=== PATIENT | female | born 1985 | race Caucasian/White ===

== ENCOUNTER 2024-03-30 12:25 | Emergency (ER) | payer BC, SELFPAY ==
--- NOTE | ~2024-03-30 | XR_ITS ---
EXAMINATION: XR ANKLE, LEFT CLINICAL INFORMATION: inversion injury COMPARISON: None TECHNIQUE: AP, lateral, and mortise views of the left ankle. FINDINGS: There is mild lateral malleolus soft tissue swelling. No visible acute fracture, dislocation or subluxation seen. Ankle mortise and the subtalar joints are normal. XR/XR ankle LT min 3V IMPRESSION: Mild lateral malleolus soft tissue swelling. No visible acute fracture, dislocation or subluxation seen. Electronically signed by: Golden Alvarez MD 03/30/2024 01:29 PM EST
[2024-03-30 13:01] VITALS: BP 150/96; PULSE 81; RESP 19; TEMP 36.6; O2SAT 100; BMI 31.3
--- NOTE | 2024-03-30 13:01 | ED.LOWEXIN ---
HPI - Extremity Injury (Lower) General Chief Complaint: Extremity Injury, Lower Stated Complaint: ankle inj Time Seen by Provider: 03/30/24 13:33 Source: patient Mode of arrival: ambulatory Limitations: no limitations History of Present Illness ED Provider: EMMA HICKEY Narrative: 38 yo female with PMH of prior L ankle fracture here with trip and fall inverted ankle at home [employer], no other injuries. Hurts to walk, has had multiple issues with same ankle in past. Denies foot or knee pain. Has been limping. complaint: ankle injury Onset (ago): minute(s) ([employer]) Injury: Left: knee Type of Injury: inversion Place: home Severity: mild Relieving factors: immobilization Exacerbating factors: weight bearing, movement and palpation Context: walking Associated symptoms: swelling Other symptoms: none Related Data Allergies Allergy/AdvReac Type Severity Reaction Status Date / Time HEMP SEEDS Allergy Numbness Uncoded 03/30/24 13:03 Review of Systems Review of Systems: Constitutional : No Fever, No Chills Cardiovascular : No Chest Pain, No SOB Respiratory : No Cough, No Dyspnea Gastrointestinal : No Nausea, No Vomiting, No Diarrhea, No abdominal Pain Genitourinary : No Dysuria, No Hematuria Musculoskeletal : positive joint pain, No Myalgias, pos Joint Swelling Skin : No Skin lacerations, No rash Neuro : No Weakness, No Numbness All other systems reviewed and are negative [facility] Past Medical History Attestation statement: The following information was validated with the patient. Medical History (Updated 03/30/24 @ 13:37 by Eduarda Tompkins DO) Ankle fracture Social History Social History (Updated 03/30/24 @ 13:35 by Eduarda Tompkins DO) Patient Tobacco Use Status: Never used Tobacco Advance Directives: No Advance Directives Information Provided: Yes Do you have a plan to hurt others: No Plan Physical Exam Vital Signs: Vital Signs: Last Vital Signs Temp 98 F 03/30/24 13:01 Pulse 81 03/30/24 13:01 Resp 19 03/30/24 13:01 BP 150/96 H 03/30/24 13:01 Pulse Ox 100 03/30/24 13:01 O2 Del Method Room Air 03/30/24 13:01 BMI result Body Mass Index 31.3 Appearance: Alert. Oriented X3. No acute distress. Eyes: Pupils equal, round and reactive to light. ENT: Pharynx normal. Neck: Normal inspection. CVS: Pulses normal. Respiratory: No respiratory distress. Abdomen: atraumatic Skin: Skin warm and dry. Normal skin color. Normal skin turgor. Extremities: No lower extremity edema. L lateral malleolus - mild swelling, no foot ttp no prox fibula ttp distal NV intact Neuro: Oriented X 3. No motor deficit. No sensory deficit. Medical Decision Making Medical Decision Making MDM Narrative: 38 yo female with PMH of prior L ankle fracture here with trip and fall inverted ankle at home [employer], no prior injuries. Hurts to walk, has had multiple issues with same ankle in past. At this time will obtain xray no signs of foot or prox fibula pain. Differential Diagnosis Differential Diagnoses: The differential diagnosis associated with the presentation includes sprain, strain, fracture Independent Interpretation I performed an independent interpretation of an: Plain X-Ray (no fracture) Radiology Impression Discussion of test interpretation with radiology: I have reviewed the radiologist's reading. Prescription Management I considered prescription management with: Pain Medication Procedures Orthopedic Splinting/Casting Injury #1: Side: left Lower Extremity Injury Location: ankle Other Orthopedic Equipment: crutches Discharge Plan Discharge Clinical Impression: Ankle sprain and strain Patient Disposition: Home, Self-Care Instructions: Ankle Sprain (ED) Additional Instructions: crutches for 5 days then bearing as tolerated air cast for 7 days return for worsening pain, cold numb blue toes or any other concerns. rest ice elevated tylenol and motrin Print Language: Bengali
[2024-03-30 13:43] VITALS: BP 150/96; PULSE 81; RESP 19; TEMP 36.6; O2SAT 100
--- OUTSIDE RECORDS SUMMARY | 2024-03-30 14:55 | XMS_ITS ---
Author Name [facility] Organization Unknown History of Medication Use Medication Directions Dispensed Refills Start Date End Date Stat cephalexin (KEFLEX) 500 MG capsule Take 1 capsule (500 mg total) by mouth 2 (two) times a day. 06/21/2022 active Problems Problem Status Onset Date Problem Type Date of Resoluti on Source Bloating active EncounterDiagnosisAct [facility] RUQ pain active EncounterDiagnosisAct [facility] Right flank pain active EncounterDiagnosisAct [facility] RLQ abdominal pain active EncounterDiagnosisAct [facility]
== END 2024-03-30 13:43 | disposition home or self-care (01) ==
PROVIDERS: Emergency Provider Emergency Medicine; PCP Internal Medicine
DX: S93.402A Sprain of unspecified ligament of left ankle, initial encounter (principal); X50.1XXA Overexertion from prolonged static or awkward postures, initial encounter; Y93.89 Activity, other specified; Y92.89 Other specified places as the place of occurrence of the external cause; Y99.8 Other external cause status
CPT/HCPCS: 73610; 99282; 99283

== ENCOUNTER → 2024-03-30 13:03 | Outpatient (BNV) | payer BC, SELFPAY | PROVIDERS: Emergency Provider Emergency Medicine; PCP Internal Medicine; Visit Provider Radiology Diagnostic Radiology | DX: M25.572 Pain in left ankle and joints of left foot (principal) | CPT/HCPCS: 73610 ==